=== PATIENT | male | born 2000 | race African-American/Black ===

== ENCOUNTER 2019-10-03 11:59 | Emergency (ER) | payer OTHER ==
[2019-10-03 12:14] VITALS: BP 128/65; PULSE 70; TEMP 98; BMI 34.3
--- NOTE | 2019-10-03 12:14 | PDOC ---
Rapid Medical Evaluation Time Seen by Provider: 10/03/19 12:05 Medical Evaluation: Allergies Allergy/AdvReac Type Severity Reaction Status Date / Time No Known Allergies Allergy Verified 10/03/19 12:04 10/03/19 12:05 CC:[email or web address] on 09/12 and went to [facility] had sx x 2. who splinted it and told him to f/o with ortho. Came today because he saw black material under his splint while scratching. has ortho appt 10/17 Exam: from of hand and wrist, sling and splint in place Plan: re eval Discharge Disposition - Diagnosis Arm injury - Referrals - Patient Instructions - Post Discharge Activity
--- NOTE | 2019-10-03 12:36 | PDOC ---
History of Present Illness - General Chief Complaint: Pain Stated Complaint: RT ARM INJURY/DISCOMFORT Time Seen by Provider: 10/03/19 12:05 History Source: Patient Exam Limitations: No Limitations - History of Present Illness Initial Comments: 10/03/19 12:29 Patient is a 19-year-old male who had an I&D and subsequent fixation of his right upper extremity, unknown exact surgery, on September 13, 2019 [place]. The patient states that he has an appointment with a different orthopedic surgeon on October 17 but came to the ED to have his cast changed. He states he noticed some blood on the cast padding and thought he may have injured himself because he was scratching with a wire stripper. The patient states he wants the cast changed because it is dirty. He has not seen the orthopedic surgeon who did his surgery which was in [facility]. He was attempting to see a new orthopedic surgeon but has yet not followed up since the actual surgery. The patient denies any fevers or chills. He denies any increased pain. Past History - Medical History Allergies/Adverse Reactions: Allergies Allergy/AdvReac Type Severity Reaction Status Date / Time No Known Allergies Allergy Verified 10/03/19 12:04 COPD: No - Immunization History Immunization Up to Date: Yes - Psycho-Social/Smoking History Smoking History: Never smoked - Substance Abuse Hx (Audit-C & DAST Scrn) How often the patient has a drink containing alcohol: Never Score: In Men: 4 or > Positive; In Women: 3 or > Positive: 0 Screen Result (Pos requires Nsg. Audit-10AR): Negative In the last yr the pt used illegal drug/Rx for NonMed reason: No Score: Yes response is considered Positive: 0 Screen Result (Positive result requires Nsg. DAST-10): Negative Review of Systems - Review of Systems Comments:: 10/03/19 12:50 - Review of Systems Able to Perform ROS?: Yes Constitutional: No: Fever, Chills, Loss of Appetite, Night Sweats, Weakness HEENTM: No: Eye Pain, Vision changes, Ear Pain, Throat Pain, Throat Swelling, Mouth Pain, Difficulty Swallowing Respiratory: No: Cough, Shortness of Breath, Wheezing, Sputum Production Cardiac (ROS): No: Chest Pain, Chest Tightness, Palpitations, Irregular Heart Beat, Edema ABD/GI: No: Nausea, Vomiting, Abdominal Pain, Diarrhea : No Dysuria, No Hematuria, No Frequency, No Urgency Musculoskeletal: No: Muscle Pain, Back Pain, Joint Pain, Muscle Weakness, Neck Pain; positive: Right upper extremity soiled cast/dressing after a right upper extremity surgery Integumentary: No: Lesions, Rash Neurological: No: Headache, Numbness, Tingling, Weakness, Speech Difficulties *Physical Exam - Vital Signs Last Vital Signs Temp Pulse Resp BP Pulse Ox 98.0 F 70 18 128/65 100 10/03/19 12:06 10/03/19 12:06 10/03/19 12:06 10/03/19 12:06 10/03/19 12:06 - Physical Exam 10/03/19 12:52 - Physical Exam General Appearance: Nourished, Appropriately Dressed, No Distress HEENT: EOMI, Normal Voice, Hearing Grossly Normal Neck: Supple, No Lymphadenopathy (R), No Lymphadenopathy (L), No Rigidity, No Decreased range of motion Respiratory/Chest: Lungs Clear, Normal Breath Sounds. No Respiratory Distress, No Accessory Muscle Use Cardiovascular: Regular Rhythm, Regular Rate, S1, S2 Gastrointestinal/Abdominal: Normal Bowel Sounds, Soft. Non-tender, No Guarding, No Rebound, No Rigidity Musculoskeletal: Normal Inspection. No Decreased Range of Motion; right upper extremity with posterior long-arm splint in place with soiled appearing Zane bandage and cast padding. Zane bandage and cast padding taken down and there are andriy in place from the mid upper arm to the mid forearm. There is no sign of infection. There is no drainage or purulence appreciated. There is a lacerated area with sutures in place without evidence of infection. Wounds healing well. Sensation intact to the radial, median and ulnar nerve distributions. Patient able to move all fingers freely. Radial pulse palpable. Extremity: Normal Capillary Refill, Normal Inspection Integumentary: Normal Color, Dry. No Rash Neurologic: concrete carpenter II-XII NML intact, Fully Oriented, Alert, Normal Mood/Affect, Normal Response Medical Decision Making - Medical Decision Making 10/03/19 12:53 Assessment: Patient is a 19-year-old male who presents to the ED 3 weeks after a right upper extremity open fracture status post washout and fixation by an orthopedist in [facility]. Plan: -Wound assessed and appears to be well-healing, no sign of infection -Xeroform applied to the incision site, Zofran sterile 4 x 4's and sterile cast padding placed and existing posterior long-arm reapplied -A new clean sling was placed as his was extremely soiled -The patient has been instructed that he must follow-up with the orthopedic surgeon who did his surgery within the next 1 to 2 days. He has been made aware that this would be his best course of action even though the surgeon is in [facility]. He understands and agrees with this treatment plan and he is stable for discharge. Discharge - Discharge Information Problems reviewed: Yes Clinical Impression/Diagnosis: Arm injury, Dressing change or removal, surgical wound Condition: Stable Disposition: HOME - Follow up/Referral - Patient Discharge Instructions Patient Printed Discharge Instructions: How to Use a Sling, DI for Elbow Fracture Additional Instructions: Keep the dressing and the splint clean and dry. Be sure not to wet it and do not use any instruments to scratch underneath the splint. Be sure to see your orthopedic surgeon in [facility] in 1 to 2 days for further evaluation and treatment. You must have your andriy removed within the next several days. Return to the emergency department for high fevers, shaking chills, increased pain, pus from the wound or any other worsening symptoms. - Post Discharge Activity
== END 2019-10-03 13:05 | disposition home or self-care (01) ==
LOC: JERFT 11:59
DX: S49.91XA Unspecified injury of right shoulder and upper arm, initial encounter (principal); Y99.9 Unspecified external cause status; Z48.00 Encounter for change or removal of nonsurgical wound dressing
CPT/HCPCS: 99282-25

== ENCOUNTER 2019-10-20 18:25 | Emergency (ER) | payer OTHER ==
[2019-10-20 18:37] VITALS: BP 127/79; PULSE 97; TEMP 97.9; BMI 34.3
--- NOTE | 2019-10-20 19:48 | PDOC ---
History of Present Illness - General Chief Complaint: Suture/Staple Removal (other) Stated Complaint: STAPLE REMOVAL Time Seen by Provider: 10/20/19 18:57 History Source: Patient Exam Limitations: No Limitations - History of Present Illness Initial Comments: 10/20/19 19:44 19-year-old male denies past medical history [id number] presents requesting staple removal from surgical site. Patient had right upper extremity fixation, unsure of exact surgery on September 12 in [facility]. He lives in [place] and has been unable to follow-up with the orthopedic surgeon in [place]. He had an appointment scheduled with an orthopedic physician on [facility] 2 days ago however surgeon did not see the patient because "needs to go back to his surgeon ". Patient reports intermittent pain over the right elbow, denies fever, chills or any other complaints. Requesting to have splint changed. ROS: RUE splint change PE: GENERAL: well-appearing, NAD HEAD: NCAT EYES: Pupils equal, round and reactive to light, sclera anicteric, conjunctiva clear ENT: pharynx: no erythema, no exudate, uvula midline NECK: supple CHEST: nontender RESP: clear, no w/r/r CARDIO: rrr, no m/g/r ABD: +BS, soft, nontender, non distended BACK: no midline spinal ttp, no CVAT EXTREMITIES: Normal range of motion, no edema NEUROLOGICAL: Normal speech, normal gait SKIN: Approximately 25-30 andriy along posterior aspect of right upper extremity, soft compartments, no surrounding erythema or drainage noted warm, Dry Is this a multiple visit Asthma Patient?: No Past History - Medical History Allergies/Adverse Reactions: Allergies Allergy/AdvReac Type Severity Reaction Status Date / Time No Known Allergies Allergy Verified 10/20/19 18:32 COPD: No - Immunization History Immunization Up to Date: Yes - Psycho-Social/Smoking History Smoking History: Never smoked Have you smoked in the past 12 months: No Information on smoking cessation initiated: No - Substance Abuse Hx (Audit-C & DAST Scrn) How often the patient has a drink containing alcohol: Never Score: In Men: 4 or > Positive; In Women: 3 or > Positive: 0 Screen Result (Pos requires Nsg. Audit-10AR): Negative In the last yr the pt used illegal drug/Rx for NonMed reason: No Score: Yes response is considered Positive: 0 Screen Result (Positive result requires Nsg. DAST-10): Negative *Physical Exam - Vital Signs Last Vital Signs Temp Pulse Resp BP Pulse Ox 97.9 F 97 H 18 127/79 99 10/20/19 18:28 10/20/19 18:28 10/20/19 18:28 10/20/19 18:28 10/20/19 18:28 Medical Decision Making - Medical Decision Making 10/20/19 19:46 19-year-old male denies past medical history [id number] presents requesting staple removal from surgical site. Patient had right upper extremity fixation, unsure of exact surgery on September 12 in [facility]. He lives in [place] and has been unable to follow-up with the orthopedic surgeon in [place]. He had an appointment scheduled with an orthopedic physician on [facility] 2 days ago however surgeon did not see the patient because "needs to go back to his surgeon ". Patient reports intermittent pain over the right elbow, denies fever, chills or any other complaints. Requesting to have splint changed. Changed splint given current splint is filthy New sling provided Patient understands the importance of following up with orthopedic surgeon in [facility], he will attempt to do so within 1 week If you develop fever, chills, weakness, numbness, tingling or any other concern return to ED 10/20/19 19:47 Discharge - Discharge Information Problems reviewed: Yes Clinical Impression/Diagnosis: Right arm pain Condition: Stable Disposition: HOME - Admission No - Follow up/Referral - Patient Discharge Instructions Additional Instructions: You must follow-up with your orthopedic surgeon in [facility] within 1 week return to the emergency room if symptoms worsen - Post Discharge Activity
== END 2019-10-20 20:03 | disposition home or self-care (01) ==
LOC: JERFT 18:25 → JER 18:25 → JERFT 20:03
DX: M79.601 Pain in right arm (principal)
CPT/HCPCS: 99282-25

== ENCOUNTER 2020-11-14 00:18 | Emergency (ER) | payer OTHER ==
[2020-11-14 00:44] VITALS: BP 125/74; PULSE 95; TEMP 98.9; BMI 43.2
== END 2020-11-14 02:22 | disposition home or self-care (01) ==
LOC: JER 00:18
DX: S50.311A Abrasion of right elbow, initial encounter (principal); Y99.9 Unspecified external cause status
CPT/HCPCS: 99281-25